=== PATIENT | female | born 2000 | race Hispanic/Latino ===

== ENCOUNTER 2024-04-09 15:17 | Day surgery (SDC) | payer OTHER ==
[2024-04-09 15:38] VITALS: BMI 28.5
[2024-04-09] MEDS: Lactated Ringer's 1,000 ML IV SCH (16:07)
[2024-04-09] MEDS ORDERED: Ondansetron PF 4 MG/2 ML Vial ONE (16:30)
[2024-04-09] MEDS: Ondansetron PF 4 MG/2 ML Vial IVP SCH (16:34)
[2024-04-09 16:59] LABS: Bilirubin Neg (Negative); Blood, Urine 25 (Negative); Glucose, Urine (Dipstick) Normal (Negative); Ketone, Urine 50 mg/dL (Negative); Leukocyte 500 (Negative); Nitrite Negative (Negative); Protein, Urine (Dipstick) 30 mg/dl (Neg-Trace); Urobilinogen Normal mg/dL (Less than 2); pH, Urine 6.5 (5.0-9.0)
[2024-04-09 17:04] LABS: Clarity Slightly Cloudy (Clear)
[2024-04-09 17:31] LABS: Bacteria/HPF 3+ HPF (None Seen)
[2024-04-09 17:32] LABS: CAUTI Indications for Culture Pelvic or flank pain; RBC/HPF 0-3 HPF (0-3); Urine Culture Reflex No No
== END 2024-04-09 17:36 | disposition home health service (06) ==
LOC: CSHLD/OP 15:17
PROVIDERS: ATTEND Obstetrics & Gynecology
DX: O23.43 Unspecified infection of urinary tract in pregnancy, third trimester (principal); O47.03 False labor before 37 completed weeks of gestation, third trimester; O21.2 Late vomiting of pregnancy; O24.419 Gestational diabetes mellitus in pregnancy, unspecified control; Z3A.35 35 weeks gestation of pregnancy; Z79.899 Other long term (current) drug therapy
CPT/HCPCS: 36416; 81001; 87480; 87510; 87660; J2405